=== PATIENT | male | born 1960 | race Caucasian/White ===

== ENCOUNTER 2022-03-19 08:21 | Inpatient (IN) ==
[~2022-03-19 08:21] MED LIST: Buffered Lidocaine 1% SYRIN 1 ml INTRADERM ONE; Lactated Ringers 1000 ml BAG 1,000 ML IV SCH
[2022-03-19] MEDS ORDERED: ceFAZolin 2 GM PREMIX 2 GM/50 ML BAG ONE (08:58)
[2022-03-19] MEDS ORDERED: Propofol 10 MG/ML 20 ML BTL ONE (09:38)
[2022-03-19] MEDS ORDERED: Midazolam 2 mg/2 ml VIAL 1 mg/ml 2 ml VIAL (2 mg) ONE ×3 (09:38→10:31)
[2022-03-19] MEDS ORDERED: Lidocaine 2% PF 5 ML VIAL ONE ×2 (09:38→09:58)
[2022-03-19] MEDS ORDERED: fentaNYL 250 mcg/5 ml 50 MCG/ML 5 ml VIAL (250 MCG) ONE (09:39)
[2022-03-19] MEDS ORDERED: ROPIVACAINE 5 MG/ML 30 ML BTL (0.5%) ONE (09:58)
[2022-03-19] MEDS ORDERED: Dexamethasone IV 4 MG/ML VIAL 1 ml VIAL ONE (09:58)
[2022-03-19] MEDS ORDERED: Naloxone 0.4 mg VIAL 0.4 mg/ml 1 ml VIAL IV PRN (10:35)
[2022-03-19] MEDS ORDERED: HYDROmorphone 1 MG/1 ML SYRINGE IV PRN (10:35)
[2022-03-19] MEDS ORDERED: Ondansetron 4 mg VIAL 2 MG/ML 2 ml VIAL IV PRN ×2 (10:35→12:34)
[2022-03-19] MEDS ORDERED: Acetaminophen IV 1 GM/100ML 1,000 MG/100 ML BAG IV ONE (11:40)
[2022-03-19] MEDS ORDERED: Ondansetron 4 mg VIAL 2 MG/ML 2 ml VIAL ONE ×2 (11:40→14:29)
[2022-03-19] MEDS ORDERED: HYDROmorphone 0.5 MG/0.5 ML SYRINGE ONE ×2 (12:20→12:41)
[2022-03-19] MEDS ORDERED: Morphine 2 MG/ML SYRINGE IV PRN (12:34)
[2022-03-19] MEDS ORDERED: Magnesium Hydroxide LIQ 30 ML UDC PO PRN (12:34)
[2022-03-19] MEDS ORDERED: Lactulose 30 ml UDC PO PRN (12:34)
[2022-03-19] MEDS ORDERED: Ondansetron ODT 4 mg TAB 4 MG TAB PO PRN (12:34)
[2022-03-19] MEDS ORDERED: Ropivacaine 5 MG/ML 20 ML VIAL 0.5% (100 MG) ONE (13:03)
[2022-03-19] MEDS ORDERED: fentaNYL 100 mcg/2 ml 50 MCG/ML VIAL ONE (14:28)
[2022-03-19] MEDS: fentaNYL 100 mcg/2 ml 50 MCG/ML VIAL IV PRN ×4 (14:31→14:52)
[2022-03-19] MEDS ORDERED: HYDROmorphone 1 MG/1 ML SYRINGE ONE (15:11)
[2022-03-19] MEDS ORDERED: Metoclopramide 5 MG/ML VIAL (10 mg) IV PRN (17:17)
[2022-03-19] MEDS: Lactated Ringers 1000 ml BAG 1,000 ML IV SCH (17:42)
[2022-03-19] MEDS: Magnesium Hydroxide LIQ 30 ML UDC PO SCH (21:10)
[2022-03-19] MEDS: ceFAZolin 1 GM ADVAN 1 GM in NS 0.9% 50 ML 50 ML IVPB SCH (21:12)
[2022-03-20] MEDS: ceFAZolin 1 GM ADVAN 1 GM in NS 0.9% 50 ML 50 ML IVPB SCH ×2 (03:41→10:08)
[2022-03-20] MEDS: Lactated Ringers 1000 ml BAG 1,000 ML IV SCH (04:45)
[2022-03-20 06:06] LABS: Hematocrit 36 % (42-52); Hemoglobin 12.2 g/dL (14.0-18.0); Mean Platelet Volume 9.1 fL (7.4-10.4); Platelet Count 158 10^3/uL (150-450)
[2022-03-20 06:44] LABS: Calcium 8.3 mg/dL (8.6-10.3); Potassium 3.9 mmol/L (3.5-5.0); eGFR CKD-EPI 96.3 (>60)
[2022-03-20 08:55] VITALS: BP 122/68
[2022-03-20] MEDS ORDERED: Vitamin THERAPEUTIC TAB PO SCH (09:00)
[2022-03-20] MEDS: Magnesium Hydroxide LIQ 30 ML UDC PO SCH (09:00)
== END 2022-03-20 11:08 | disposition home or self-care (01) | DRG 302 ==
LOC: AA 08:21 → INTOOBSV 08:21 → SSU 17:38
PROVIDERS: ADMIT Orthopaedic Surgery Adult Reconstructive Orthopaedic Surgery; ATTEND Orthopaedic Surgery Adult Reconstructive Orthopaedic Surgery